=== PATIENT | male | born 2000 | race Two or more races ===

== ENCOUNTER 2018-06-15 01:17 | Emergency (ER) | payer OTHER ==
[~2018-06-15] VITALS: Ht 177.8 cm; Wt 61.2 kg
[2018-06-15] MEDS ORDERED: ACTIVATED CHARCOAL 50 GM/240 ML SOL PO ONE ×2 (01:45→02:00)
[2018-06-15 02:16] LABS: Hematocrit 46.2 % (41.0-53.0); Hemoglobin 15.3 g/dL (13.5-17.5); Mean Corpuscular Hemoglobin 31.2 pg (28.0-32.0); Mean Corpuscular Hgb Conc. 33.2 g/dL (32.0-36.0); Platelet Count (auto) 137 10^3/uL (140-450); Red Blood Cells 4.91 10^6/uL (4.5-5.90); Red Cell Distribution Width 12.9 % (11.8-14.3); White Blood Cell 15.3 10^3/uL (4.4-10.8)
[2018-06-15] MEDS ORDERED: NALOXONE HCL 1MG/ML 2ML SYRINGE IV ONE (02:30)
[2018-06-15 02:35] LABS: Albumin 4.1 g/dL (3.4-5.0); Anion Gap 12 (5-15); BUN/Creatinine Ratio 10.5; Blood Alcohol < 3.0 mg/dL (0-5); Blood Urea Nitrogen 13 mg/dL (7-18); Calcium 8.4 mg/dL (8.5-10.1); Carbon Dioxide 25 mmol/L (21-32); Chloride 104 mmol/L (98-107); GFR African American 96 mL/min; GFR Non-African American 79 mL/min; Glucose 257 mg/dL (74-106); Potassium 5.4 mmol/L (3.5-5.1); Salicylate 1.8 mg/dL (2.8-20.0); Sodium 141 mmol/L (136-145)
[2018-06-15 02:38] LABS: Alanine Aminotransferase 68 U/L (16-61); Alkaline Phosphatase 68 U/L (45-117); Aspartate Aminotransferase 48 U/L (15-37); Bilirubin, Total 0.6 mg/dL (0.2-1.0); Total Protein 7.4 g/dL (6.4-8.2)
[2018-06-15 02:39] LABS: Amylase 23 U/L (25-115); Lipase 83 U/L (73-393)
[2018-06-15 02:49] LABS: Acetaminophen < 2.0 ug/mL (10-30)
[2018-06-15 02:59] LABS: Band Neutrophils % (manual) 0; Basophils % (manual) 0 (0.0-2.0); Blast Cells 0; Eosinophils % (manual) 0 (0-7); Metamyelocytes % 0; Myelocytes % 0; Promyelocytes % 0; Reactive Lymphocytes 0
[2018-06-15 03:39] LABS: Lymphocytes % (manual) 2 (10.0-50.0); Monocytes % (manual) 4 (0-12)
[2018-06-15 06:43] LABS: Albumin 3.6 g/dL (3.4-5.0); BUN/Creatinine Ratio 13.8; Bilirubin, Direct 0.2 mg/dL (0-0.2); Bilirubin, Total 0.6 mg/dL (0.2-1.0); Calcium 8.1 mg/dL (8.5-10.1); Potassium 4.1 mmol/L (3.5-5.1); Total Protein 6.3 g/dL (6.4-8.2)
[2018-06-15 07:19] VITALS: BP 97/65
== END 2018-06-15 07:39 | disposition home or self-care (01) ==
LOC: ER 01:17 → EDBD 01:17 → ER 07:39
DX: T48.1X1A Poisoning by skeletal muscle relaxants [neuromuscular blocking agents], accidental (unintentional), initial encounter (principal); F41.9 Anxiety disorder, unspecified; Y92.89 Other specified places as the place of occurrence of the external cause; F17.210 Nicotine dependence, cigarettes, uncomplicated
CPT/HCPCS: 36415; 71045; 80053; 80076; 80320; 80329; 82150; 83690; 85007; 85027; 93005; 94761

== ENCOUNTER 2019-07-03 16:21 | Emergency (ER) | payer MEDICAID ==
[~2019-07-03] VITALS: Ht 177.8 cm; Wt 59.0 kg
[2019-07-03] MEDS ORDERED: SODIUM CHLORIDE 0.9% 1,000 ML IV ONE ×2 (17:58)
[2019-07-03] MEDS ORDERED: THIAMINE 100mg/ml INJ (200mg/2ml VIAL) IM ONE (18:00)
[2019-07-03 18:09] VITALS: BP 111/78
[2019-07-03 18:16] LABS: Basophils # (auto) 0 uL; Basophils % (auto) 0.2 % (0.0-2.0); Eosinophils # (auto) 0 uL; Hematocrit 44.5 % (41.0-53.0); Hemoglobin 15.2 g/dL (13.5-17.5); Lymphocytes # (auto) 0.5 uL; Lymphocytes % (auto) 5.7 % (10.0-50.0); Mean Corpuscular Hgb Conc. 34.2 g/dL (32.0-36.0); Mean Corpuscular Volume 90.9 fL (80.0-100.0); Monocytes # (auto) 0.3 uL; Monocytes % (auto) 3.3 % (0.0-12.0); Neutrophils # (auto) 7.3 uL; Neutrophils % (auto) 90.8 % (37.0-80.0); Platelet Count (auto) 156 10^3/uL (140-450); Red Blood Cells 4.89 10^6/uL (4.5-5.90); Red Cell Distribution Width 13.1 % (11.8-14.3); White Blood Cell 8.1 10^3/uL (4.4-10.8)
[2019-07-03 18:18] LABS: Chloride 112 mmol/L (98-107); Potassium 3.9 mmol/L (3.5-5.1); Sodium 145 mmol/L (136-145)
[2019-07-03 18:18] LABS: Urine WBC None Seen /hpf (0 - 3)
[2019-07-03 18:20] LABS: Acetaminophen 2.1 ug/mL (10-30); Salicylate < 1.7 mg/dL (2.8-20.0)
[2019-07-03 18:24] LABS: Alanine Aminotransferase 24 U/L (16-61); Albumin 3.9 g/dL (3.4-5.0); Alkaline Phosphatase 56 U/L (45-117); Anion Gap 7 (5-15); Aspartate Aminotransferase 15 U/L (15-37); BUN/Creatinine Ratio 8.5; Bilirubin, Total 0.9 mg/dL (0.2-1.0); Blood Alcohol < 3.0 mg/dL (0-5); Blood Urea Nitrogen 6 mg/dL (7-18); Carbon Dioxide 26 mmol/L (21-32); GFR African American 180 mL/min; GFR Non-African American 149 mL/min; Glucose 116 mg/dL (74-106); Magnesium 1.7 mg/dL (1.6-2.6); Total Protein 6.9 g/dL (6.4-8.2)
[2019-07-03 18:37] LABS: Urine Bacteria NONE SEEN /hpf (None Seen); Urine Blood Negative /uL (Negative); Urine Mucus FEW (None Seen); Urine Specific Gravity 1.005 (1.001-1.035)
[2019-07-03 18:45] LABS: Alcohol, Urine < 3.0 mg/dL (0-5); Amphetamine Screen, Urine NEGATIVE (NEGATIVE); Barbiturate Scree,Urine NEGATIVE (NEGATIVE); Benzodiazephine Screen, Urine NEGATIVE (NEGATIVE); Cannabinoid Screen, Urine POSITIVE (NEGATIVE); Cocaine Screen, Urine NEGATIVE (NEGATIVE); Opiate Scree,Urine NEGATIVE (NEGATIVE); Phencyclidine Screen, Urine NEGATIVE (NEGATIVE)
== END 2019-07-03 19:07 | disposition left against medical advice (07) ==
LOC: EDBD 16:21 → ER 16:21
DX: E86.0 Dehydration (principal); F11.10 Opioid abuse, uncomplicated; F17.210 Nicotine dependence, cigarettes, uncomplicated
CPT/HCPCS: 36415; 80053; 80307; 80320; 80329; 81001; 83735; 85025; 93005